=== PATIENT | female | born 1975 | race Caucasian/White ===

== ENCOUNTER 2019-10-23 11:03 | Outpatient (CLI) | payer OTHER ==
--- NOTE | 2019-10-23 12:21 | RAD ---
PA AND LATERAL VIEWS CHEST: Date: 10/23/2019 HISTORY: Hemoptysis. COMPARISON: 12/29/2012. FINDINGS: The heart size is normal. The lungs are expanded without lobar consolidation, pneumothoraces, or pleu ral effusions. There are mild degenerative changes in the spine. IMPRESSION: No radiographic evidence of acute cardiopulmonary process. POS: [facility]
== END 2019-10-23 11:04 | disposition home or self-care (01) ==
LOC: MADRAD 11:03
DX: R04.2 Hemoptysis (principal)
CPT/HCPCS: 71046